=== PATIENT | male | born 1950 | race Caucasian/White ===

== ENCOUNTER → 2020-01-24 | Outpatient (CLI) | payer OTHER ==
[~2020-01-24] MED LIST: ASPI-630 PO; BACI3.5O4 EACHEYE; CHOL100014 PO; COLC0.6T42 PO; LISI-130 PO; PROP15DR EACHEYE; TAMS0.4C97 PO; vitamin d PO
--- NOTE | 2020-01-24 12:21 | RAD ---
Whole body bone scan INDICATION: Prostate cancer, diagnosed 1 month ago. COMPARISON: Abdomen pelvis CT without IV contrast of 12/06/2019 TECHNIQUE: 26 mCi of technetium labeled MDP radiopharmaceutical were injected into the left antecubital fossa and after an appropriate delay (approximately 2 hours) whole-body imaging was performed in the anterior and posterior projections. FINDINGS: Uptake in the extremities are in a pattern typical of degenerative change. These include in the bilateral knees, feet, wrists, shoulders at the sternoclavicular junctions. No abnormal uptake in the osseous and soft tissues suspicious for osseous metastatic disease. IMPRESSION: No abnormal uptake suspicious for metastatic disease in the [id number]. Electronically signed by: Kevin Maddox MD (01/24/2020 12:18 PM) [id number]
--- NOTE | 2020-01-24 12:21 | RAD ---
Whole body bone scan INDICATION: Prostate cancer, diagnosed 1 month ago. COMPARISON: Abdomen pelvis CT without IV contrast of 12/06/2019 TECHNIQUE: 26 mCi of technetium labeled MDP radiopharmaceutical were injected into the left antecubital fossa and after an appropriate delay (approximately 2 hours) whole-body imaging was performed in the anterior and posterior projections. FINDINGS: Uptake in the extremities are in a pattern typical of degenerative change. These include in the bilateral knees, feet, wrists, shoulders at the sternoclavicular junctions. No abnormal uptake in the osseous and soft tissues suspicious for osseous metastatic disease. IMPRESSION: No abnormal uptake suspicious for metastatic disease in the [id number]. Electronically signed by: Kevin Maddox MD (01/24/2020 12:18 PM) [id number]
== END | disposition home or self-care (01) ==
LOC: NM 08:05
PROVIDERS: ATTEND Radiology Radiation Oncology
DX: C61 Malignant neoplasm of prostate (principal)
CPT/HCPCS: 78306; A9503

== ENCOUNTER 2020-01-25 11:30 | Outpatient (CLI) | payer OTHER ==
[~2020-01-25] VITALS: Ht 175.3 cm; Wt 107.5 kg
[2020-01-25] VITALS (9 sets, daily range): BP systolic 125–174; BP diastolic 64–93
[2020-01-25] MEDS ORDERED: ASPI-630 PO (11:59)
[2020-01-25] MEDS ORDERED: CHOL100014 PO (11:59)
[2020-01-25] MEDS ORDERED: BACI3.5O4 EACHEYE (11:59)
[2020-01-25] MEDS ORDERED: TAMS0.4C97 PO (11:59)
[2020-01-25] MEDS ORDERED: PROP15DR EACHEYE (11:59)
[2020-01-25] MEDS ORDERED: LISI-130 PO (11:59)
[2020-01-25] MEDS ORDERED: COLC0.6T42 PO (11:59)
[2020-01-25] MEDS ORDERED: vitamin d PO (11:59)
[2020-01-25] MEDS ORDERED: fentaNYL PF VIAL 100 MCG/2 ML VIAL ONE (12:41)
[2020-01-25] MEDS ORDERED: MIDAZOLAM HCL/PF 2 MG/2 ML VIAL. ONE ×2 (12:41→12:47)
[2020-01-25] MEDS: MIDAZOLAM HCL/PF 2 MG/2 ML VIAL. IV ONE (13:00)
[2020-01-25] MEDS: fentaNYL PF VIAL 100 MCG/2 ML VIAL IV ONE (13:01)
--- NOTE | 2020-01-25 15:56 | RAD ---
Ultrasound-guided, transrectal fiducial marker placement within the prostate gland 01/25/2020 Indication: Prostate cancer Discussion: Sedation: [id number] conscious sedation was performed for 25 minutes. Sedation was carried out while the patient was continually monitored by a member of the Radiology nursing staff. Continual cardiopulmonary monitoring was carried out during the procedure. The patient tolerated the procedure well and there were no immediate complications. The risks and benefits of the procedure were discussed the patient. Informed consent was obtained. A timeout procedure was performed. Transrectal ultrasound was performed delineating the prostate gland. Under direct ultrasound guidance, 3 gold fiducial markers were placed in the right and left basilar, and more apical prostate gland, respectively. The patient tolerated this without immediate complication. IMPRESSION: Ultrasound-guided, transrectal fiducial marker placement within the prostate gland Electronically signed by: Randy Mclean MD (01/25/2020 3:53 PM) [id number]
== END 2020-01-25 14:09 | disposition home or self-care (01) ==
LOC: US 11:30
PROVIDERS: ATTEND Radiology Radiation Oncology
DX: C61 Malignant neoplasm of prostate (principal)
CPT/HCPCS: 55876; 77387; 99152; J2250; J3010